=== PATIENT | female | born 1970 | race African-American/Black ===

== ENCOUNTER 2024-01-16 16:53 | Emergency (ER) | payer OTHER, SELFPAY ==
--- NOTE | ~2024-01-16 | US_ITS ---
EXAMINATION: US venous doppler LE RT DATE: 01/16/2024 19:47 INDICATION: pain [id number] . TECHNIQUE: Grayscale images without and with compression and Doppler images of the right lower extrem ity veins were obtained. COMPARISON: None FINDINGS: The right common femoral vein, profunda (deep) femoral vein, femoral vein, popliteal vein, peroneal v ein, posterior tibial veins, gastrocnemius vein, and greater saphenous vein are patent. IMPRESSION: Patent right lower extremity veins. No evidence of deep venous thrombosis. Reviewed, dictated and finalized at location K. 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
--- NOTE | ~2024-01-16 | XR_ITS ---
EXAMINATION: XR chest 1V Exam Date/Time: 01/16/2024 18:52 [employer]ER [employer] MACHINE HISTORY: cough x 2 months Comparison: None. RESULT: Lines, tubes, and devices: Possible coronary stents. Lungs and pleura: Clear. Cardiomediastinal silhouette: Unremarkable. Other: No acute osseous or upper abdominal finding. IMPRESSION: No acute cardiopulmonary process. Reviewed, dictated and finalized at location K. 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
--- NOTE | ~2024-01-16 | XR_ITS ---
EXAM: XR knee RT 3V DATE: 01/16/2024 19:08 HISTORY: R knee pain, worse with walking . COMPARISON: None available. FINDINGS: Normal mineralization. No fracture or dislocation. No lytic or blastic lesion. Moderate tr icuspid medial osteoarthritis. Small volume joint effusion. No erosion or periosteal change. Soft tis sues within normal limits. IMPRESSION: No acute osseous finding in the right knee. Reviewed, dictated and finalized at location K. [employer]
--- NOTE | ~2024-01-16 | XR_ITS ---
EXAM: XR lumbar spine 2-3V DATE: 01/16/2024 19:08 HISTORY: radiating RLE pain x weeks . COMPARISON: None available. FINDINGS: Mild scoliosis. 5 nonrib-bearing lumbar-type vertebral bodies. Pedicles intact. Normal vert ebral body alignment. Vertebral body heights preserved. Mild multilevel marginal osteophytosis. Mild disc space narrowing at L3-4 and L4-5. Mild mid and lower lumbar facet hypertrophy and sclerosis. No fracture or dislocation. IMPRESSION: No acute fracture or traumatic malalignment detected in the lumbar spine. Reviewed, dictated and finalized at location K. 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
[2024-01-16 16:56] VITALS: BP 129/83; PULSE 89; RESP 16; TEMP 36.7; O2SAT 100
--- NOTE | 2024-01-16 18:48 | ED_ITS ---
HPI - Extremity Injury (Lower) General Chief Complaint: Extremity Injury, Lower <Jamie Ortiz PA-C - Last Filed: 01/16/24 18:51> Stated Complaint: right leg pain, cough <Jamie Ortiz PA-C - Last Filed: 01/16/24 18:51> Time Seen by Provider: 01/16/24 18:48 <Jamie Ortiz PA-C - Last Filed: 01/16/24 18:51> Focused HPI: this is a 53-year-old female who presents to the ED for chief complaint of several weeks of worsening right lower extremity radiating pain. Reports pain that radiates from thigh down to foot on occasion. States she has minimal back pain. Reports history of left knee replacement and thinks she may have arthritis in the right knee. endorses dry cough on and off for the past several months as well. Reports she has had multiple [facility] and primary doctor. Denies fevers, chills, nausea, vomiting, numbness, weakness, bowel or bladder dysfunction GENERAL: Well-appearing, well-nourished, and in no acute distress. HEAD: Normocephalic, atraumatic. CHEST: Clear to auscultation. No respiratory distress. HEART: Regular rate and rhythm. NEURO: Alert and oriented x3. Patient screened in triage and initial orders placed. Additional care and disposition to be based upon diagnostic testing and treatment. <Jamie Ortiz PA-C - Last Filed: 01/16/24 18:51> Source: patient <Jamie Ortiz PA-C - Last Filed: 01/16/24 18:51> Mode of arrival: ambulatory <Jamie Ortiz PA-C - Last Filed: 01/16/24 18:51> Limitations: no limitations <Jamie Ortiz PA-C - Last Filed: 01/16/24 18:51> History of Present Illness HPI Narrative: agree with HPI above <Miguel Lopez MD - Last Filed: 01/16/24 20:09> Related Data Allergies/Adverse Reactions: Allergies Allergy/AdvReac Type Severity Reaction Status Date / Time No Known Allergies Allergy Verified 01/16/24 19:21 <Jamie Ortiz PA-C - Last Filed: 01/16/24 18:51> Review of Systems Review of Systems: as reviewed above in HPI <Miguel Lopez MD - Last Filed: 01/16/24 20:09> Exam Narrative: GENERAL: [Well-appearing, well-nourished, and in no acute distress.] HEAD: [Normocephalic, atraumatic.] EYES: [PERRLA and EOMI.] ENT: Nares clear, no rhinorrhea or epistaxis. Mucous membranes moist. NECK: Supple. CHEST: [Clear to auscultation. No respiratory distress.] HEART: [Regular rate and rhythm]. No murmur heard. [Normal peripheral pulses.] ABDOMEN: [Soft, nondistended], [nontender], [No rigidity or guarding] EXTREMITIES: right lower extremity with some asymmetric swelling compared to the left especially around the calf. Tenderness with palpation around the calf muscle but no edema in the ankle. Full range of motion with intact extensor mechanism. EHL and FHL 5/5 strength. 2+ dorsalis pedis pulse with warm extremities. No tenderness over the joint and she has full range of motion of the hip and knee. Bilateral lower extremities with full range of motion. SKIN: Warm, dry, no rash. NEURO: [No focal deficits]. Alert and oriented [x3.] PSYCH: [Normal mood and affect.] <Miguel Lopez MD - Last Filed: 01/16/24 20:09> Course Vital Signs Vital signs: Vital Signs Temperature 36.7 C 01/16/24 16:56 Pulse Rate 89 01/16/24 16:56 Respiratory Rate 16 01/16/24 16:56 Blood Pressure 129/83 01/16/24 16:56 Pulse Oximetry 100 01/16/24 16:56 Temperature 36.7 C 01/16/24 16:56 Pulse Rate 89 01/16/24 16:56 Respiratory Rate 16 01/16/24 16:56 Blood Pressure 129/83 01/16/24 16:56 Pulse Oximetry 100 01/16/24 16:56 <Jamie Ortiz PA-C - Last Filed: 01/16/24 18:51> Vital Signs Temperature 36.7 C 12/09/24 16:56 Pulse Rate 89 01/16/24 16:56 Respiratory Rate 16 01/16/24 16:56 Blood Pressure 129/83 01/16/24 16:56 Pulse Oximetry 100 01/16/24 16:56 Temperature 36.7 C 01/16/24 16:56 Pulse Rate 89 01/16/24 16:56 Respiratory Rate 16 01/16/24 16:56 Blood Pressure 129/83 01/16/24 16:56 Pulse Oximetry 100 01/16/24 16:56 <Miguel Lopez MD - Last Filed: 01/16/24 20:09> MDM - Extremity Injury (Lower) MDM Narrative Medical decision making narrative: 53-year-old female presenting for evaluation of right lower extremity pain for last 2 weeks. 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 She is concerned that could be a blood clot. No history of long travel, recent surgeries, procedures, any blood clot history in the past. Does not take any blood thinner medications. She does have some asymmetric swelling around the calf compared to the left side and there is tenderness to palpation especially with plantar flexion compared to dorsiflexion but she has full strength and sensation throughout both legs. Warm well-perfused extremities with 2+ pulses. Normal reassuring vital signs. Patient also has a secondary complaint of a chronic dry cough for last few weeks but denies any fever, chills, productive cough or shortness of breath. X-rays were obtained in triage including x-rays of the right lower extremity, lumbar spine and chest and ultrasound of the right leg for evaluation of a DVT was ordered. X-rays were all reviewed and there are no osseous processes such as fractures or dislocations in the knee or lumbar spine. Chest x-ray without any acute cardiothoracic process as interpreted by radiology. DVT ultrasound shows patent right lower extremity veins without any evidence of deep venous thrombosis or superficial venous thrombosis. patient was provided ibuprofen and Tylenol as well as Robaxin for her aches and pains. At this time she is stable for discharge home with regular primary care and orthopedic follow-up. She can call her orthopedic surgeon states that the closest appointment she can get his February. Will send her home with a dose of muscle relaxers and NSAIDs for continued aches and pains and relief of her symptoms until she can safely see her doctor outpatient. She was given return precautions including worsening pa in or new symptoms and patient expressed understanding prior to discharge. <Miguel Loepz MD - Last Filed: 01/16/24 20:09> Medical Records Attestation: I reviewed the patient's medical records. <Miguel Lopez MD - Last Filed: 01/16/24 20:09> Lab Data Labs: Lab Results 01/16/24 Range/Units 19:33 Influenza A (RT-PCR) Pending Influenza B (RT-PCR) Pending RSV (RT-PCR) Pending SARS-CoV-2 RNA (RT-PCR) Pending <Jamie Ortiz PA-C - Last Filed: 01/16/24 18:51> Lab Results 01/16/24 Range/Units 19:33 Influenza A (RT-PCR) Pending Influenza B (RT-PCR) Pending RSV (RT-PCR) Pending SARS-CoV-2 RNA (RT-PCR) Pending <Miguel Lopez MD - Last Filed: 01/16/24 20:09> Imaging Data Attestation: I personally reviewed and interpreted this imaging study as follows: <Miguel Lopez MD - Last Filed: 01/16/24 20:09> My impression: Impressions Chest X-Ray 01/16/24 19:16 IMPRESSION: No acute cardiopulmonary process. Knee X-Ray 01/16/24 19:18 IMPRESSION: No acute osseous finding in the right knee. Lumbar Spine X-Ray 01/16/24 19:19 IMPRESSION: No acute fracture or traumatic malalignment detected in the lumbar spine. Venous Doppler Study 01/16/24 19:51 IMPRESSION: Patent right lower extremity veins. No evidence of deep venous thrombosis. <Miguel Lopez MD - Last Filed: 01/16/24 20:09> Discharge Plan Discharge Clinical Impression: Leg pain, right, Pain of right calf <Jamie Ortiz PA-C - Last Filed: 01/16/24 18:51> Patient Disposition: Home, Self-Care <Jamie Ortiz PA-C - Last Filed: 01/16/24 18:51> Condition: Stable <Jamie Ortiz PA-C - Last Filed: 01/16/24 18:51> Instructions: Antibiotic Form <Jamie Ortiz PA-C - Last Filed: 01/16/24 18:51> Additional Instructions: follow-up with your regular primary care provider and your orthopedic doctor on outpatient basis. Your ultrasound and x-rays were very reassuring today. we will send you home with some muscle relaxers and pain control medications. Return with any new or worsening concerns at any time. <Jamie Ortiz PA-C - Last Filed: 01/16/24 18:51> Prescriptions: New tramadol 50 mg tablet 50 mg PO Q6H PRN (Reason: pain) Qty: 14 0RF methocarbamol 750 mg tablet 750 mg PO TID PRN (Reason: pain) Qty: 20 0RF <Jamie Ortiz PA-C - Last Filed: 01/16/24 18:51> Follow-up/Referrals: PHYSICIAN NOT ON STAFF,NONSTAFF [Non-Staff] - <Jamie Ortiz PA-C - Last Filed: 01/16/24 18:51> Time of Disposition: 20:08 <Jamie Ortiz PA-C - Last Filed: 01/16/24 18:51> 20:08 <Miguel Lopez MD - Last Filed: 01/16/24 20:09>
[2024-01-16] MEDS: Please add drug allergy info to patient profile. 1 EACH XX (19:20)
[2024-01-16] MEDS: ACETAMINOPHEN 500 MG TABLET 1000 MG PO (19:21)
[2024-01-16] MEDS: IBUPROFEN 400 MG TABLET 800 MG PO (19:22)
[2024-01-16 20:16] LABS: Influenza A QL RT-PCR Negative (Negative); Influenza B QL RT-PCR Negative (Negative); RSV RNA, RT-PCR Negative (Negative); SARS-CoV-2 RNA PCR Negative (Negative)
[2024-01-16] MEDS: methocarbamoL 500 MG TABLET PO (20:20)
== END 2024-01-16 20:29 | disposition home or self-care (01) ==
PROVIDERS: Physician Assistant; Emergency Provider Student in an Organized Health Care Education/Training Program
DX: M79.604 Pain in right leg (principal); Z96.652 Presence of left artificial knee joint; Z20.822 Contact with and (suspected) exposure to COVID-19
CPT/HCPCS: 71045; 72100; 73562; 87637; 93971; 99284; A9270